=== PATIENT | male | born 1970 | race Caucasian/White ===

== ENCOUNTER 2018-12-23 19:03 | Emergency (ER) | payer OTHER ==
[~2018-12-23] VITALS: Ht 180.3 cm; Wt 71.7 kg
[2018-12-23] MEDS ORDERED: AMOX1TAB61 PO (19:28)
[2018-12-23 19:30] VITALS: BP 142/87
[2018-12-23] MEDS ORDERED: DIPHTH,PERTUSS(ACELL),TET TOX 0.5 ML DISP.SYRIN. VAX IM ONE (19:30)
--- NOTE | 2018-12-23 19:30 | PHYS DOC ---
Adult General Chief Complaint Chief Complaint: ANIMAL BITE HPI HPI Patient is a 48 year old male who presents with 5 scrapes, not quite puncture wounds, on his left upper thigh from a dog bite this afternoon. 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 He did call animal control. A report is been filed. He denies any other injury. He is unsure of his tetanus status. (EDNA GREEN APRN) Review of Systems Review of Systems Constitutional: Denies fever or chills [] Eyes: Denies change in visual acuity, redness, or eye pain [] HENT: Denies nasal congestion or sore throat [] Respiratory: Denies cough or shortness of breath [] Cardiovascular: No additional information not addressed in HPI [] GI: Denies abdominal pain, nausea, vomiting, bloody stools or diarrhea [] : Denies dysuria or hematuria [] Musculoskeletal: Denies back pain or joint pain [] Integument: See history of present illness Neurologic: Denies headache, focal weakness or sensory changes [] Endocrine: Denies polyuria or polydipsia [] All other systems were reviewed and found to be within normal limits, except as documented in this note. (EDNA GREEN APRN) Current Medications Current Medications Current Medications Medications (Trade) Dose Ordered Sig/Yesi Start Time Stop Time Status Last Admin Dose Admin Diphtheria/ Tetanus/Acell Pertussis (Boostrix) 0.5 ml ONCE ONCE 12/23/18 19:30 12/23/18 19:57 DC 12/23/18 20:08 0.5 ML (TAYA VALDEZ DO) Allergies Allergies Allergies Coded Allergies Type Severity Reaction Last Updated Verified No Known Drug Allergies 12/23/18 No (TAYA VALDEZ DO) Physical Exam Physical Exam Constitutional: Well developed, well nourished, no acute distress, non-toxic appearance. [] Cardiovascular:Heart rate regular rhythm, no murmur [] Lungs & Thorax: Bilateral breath sounds clear to auscultation [] Abdomen: Bowel sounds normal, soft, no tenderness, no masses, no pulsatile masses. [] Skin: Left upper thigh has for abrasions and one small shallow puncture wound from a dog bite, bleeding is controlled Back: No tenderness, no CVA tenderness. [] Extremities: No tenderness, no cyanosis, no clubbing, ROM intact, no edema. [] Neurologic: Alert and oriented X 3, normal motor function, normal sensory function, no focal deficits noted. [] Psychologic: Affect normal, judgement normal, mood normal. [] (EDNA GREEN APRN) Current Patient Data Vital Signs Vital Signs Date Time Temp Pulse Resp B/P (MAP) Pulse Ox O2 Delivery O2 Flow Rate FiO2 12/23/18 19:30 98.9 78 18 142/87 (105) 98 Room Air 98.9 (TAYA VALDEZ DO) EKG EKG [] (EDNA GREEN APRN) Radiology/Procedures Radiology/Procedures [] (EDNA GREEN APRN) Course & Med Decision Making Course & Med Decision Making Pertinent Labs and Imaging studies reviewed. (See chart for details) []The patient was given Boostrix in the emergency department. His wounds were cleaned and dressed. He has been placed on Augmentin for prophylactic antibiotic coverage. (EDNA GREEN APRN) Dragon Disclaimer Dragon Disclaimer This electronic medical record was generated, in whole or in part, using a voice recognition dictation system. (EDNA GREEN APRN) Departure Departure Impression: Primary Impression: Dog bite of left thigh Disposition: 01 HOME, SELF-CARE Condition: STABLE Patient Instructions: Animal Bite Additional Instructions: Follow-up with animal control as directed. Take the medication as directed. You may use ibuprofen or Tylenol for pain. Keep wound clean and dry. Follow-up with your primary care provider in 4 days for recheck or return to the emergency department if worsening. Scripts Amoxicillin/Potassium Clav (AUGMENTIN 875-125 TABLET) 1 Each Tablet 1 TAB PO BID for dog bite, #20 TAB Prov: EDNA GREEN APRN 12/23/18 Attending Signature Attending Signature I have reviewed the PA/TRAWL NET MAKER's note and plan of care. I was available for consultation as needed during the patient's visit in the emergency department. I agree with the clinical impression, plan, and disposition. (TAYA VALDEZ DO) EDNA GREEN APRN Dec 23, 2018 19:30 TAYA VALDEZ DO Dec 29, 2018 00:46
== END 2018-12-23 20:10 | disposition home or self-care (01) ==
LOC: ER 19:03
DX: S71.152A Open bite, left thigh, initial encounter (principal); W54.0XXA Bitten by dog, initial encounter; Y93.89 Activity, other specified; Y92.89 Other specified places as the place of occurrence of the external cause; Y99.8 Other external cause status
CPT/HCPCS: 90471; 90715; 99283